=== PATIENT | female | born 1960 ===

== ENCOUNTER 2016-08-25 06:25 | Day surgery (SDC) | payer MEDICAID ==
[2016-07-07 22:18] VITALS: BMI 31.1
[2016-08-25] MEDS ORDERED: Lidocaine 2% Inj (20ml) ONE (07:17)
[2016-08-25] MEDS ORDERED: Bupivacaine HCl 0.5% PF (10 ml) Inj ONE (07:17)
[2016-08-25] MEDS ORDERED: ceFAZolin IV 1 gm in Dextrose 50 ML IVPB ONE (07:17)
[2016-08-25] MEDS ORDERED: Midazolam 2 MG/2 ML VIAL ONE (07:53)
[2016-08-25] MEDS ORDERED: Propofol 10 mg/ml Inj (20 ML) ONE (07:53)
[2016-08-25] MEDS ORDERED: Lactated Ringer's 1,000 ML IV ONE (07:55)
[2016-08-25] MEDS ORDERED: Lidocaine Hydrochloride 5 ML INJ ONE (08:00)
[2016-08-25] MEDS ORDERED: Bacitracin Ointment 30 GM TUBE ONE (09:15)
[2016-08-25] MEDS ORDERED: HYDROmorphone 0.5 mg/0.5 ml ISec IVP PRN (09:28)
--- NOTE | 2016-08-25 09:37 | PCM.SURG1 ---
Surgeon's Initial Post Op Note - Surgeon's Notes Surgeon: Clem HALL Asphalt Distributor Tender: Connie PGY3 Type of Anesthesia: IV Sedation, Local Pre-Operative Diagnosis: Avascular necrosis of second metatarsal, left foot Operative Findings: See dictation Post-Operative Diagnosis: SAME Operation Performed: Second metatarsal implant, left Specimen/Specimens Removed: Bone, 2nd met, left foot Estimated Blood Loss: EBL {In ML}: 5 Blood Products Given: N/A Drains Used: No Drains Post-Op Condition: Good Date of Surgery/Procedure: 08/25/16 Time of Surgery/Procedure: 08:00
--- NOTE | 2016-08-25 09:37 | CP.PCM.PN ---
Subjective - Date & Time of Evaluation Date of Evaluation: 08/25/16 Time of Evaluation: 08:00 Objective - Medications Medications: Current Medications Hydromorphone HCl (Dilaudid) 0.5 mg IVP Q15M PRN PRN Reason: Pain, severe (8-10) Stop: 08/25/16 11:29
[2016-08-25] MEDS ORDERED: Oxycodone/Acetaminophen 5/325 mg Tab PO PRN (09:38)
--- NOTE | 2016-08-25 11:12 | RAD ---
PROCEDURE: Left Foot Radiographs. HISTORY: s/p left foot surgery COMPARISON: None. FINDINGS: BONES: Status post prosthesis in the 2nd metatarsal head. Bone alignment is normal. There is mild periarticular bone demineralization. There is no acute fracture, dislocation or bone destruction JOINTS: The joint spaces are preserved. SOFT TISSUES: There is moderate dorsal forefoot soft tissue swelling OTHER FINDINGS: None. IMPRESSION: Status post processes in the 2nd metatarsal head. Moderate dorsal forefoot soft tissue swelling
[2016-08-25 16:13] VITALS: O2SAT 95
[2016-08-25 16:14] VITALS: BP 138/84; PULSE 81; RESP 19; TEMP 97.9
--- NOTE | 2016-08-27 10:19 | OP ---
PROCEDURE DATE: 08/25/2016 SURGEON: Kar Nj DPM METHODS AND PROCEDURES ANALYST: Marsha Rosales, PGY-3. ANESTHESIA: IV sedation with local anesthesia. PREOPERATIVE DIAGNOSIS: Avascular necrosis, second metatarsal head, left foot. POSTOPERATIVE DIAGNOSIS: Avascular necrosis, second metatarsal head, left foot. PROCEDURE: Second metatarsophalangeal joint implant, left foot. INDICATIONS: The patient is a 56-year-old female with the above-mentioned diagnosis. The patient st ates that she has pain with pressure and range of motion to her second metatarsophalangeal joint on h er left foot. The patient has exhausted all conservative treatment at this time and is now requestin g surgical intervention. The patient signed the consent after careful explanation of all risks, bene fits, complications and alternatives to the surgical procedure. No guarantees were given nor implied . PREPARATION: The patient was brought into the operating room, placed on the operating room table in a supine position. A well-padded pneumatic ankle tourniquet was applied to the patient's left ankle in a supramalleolar position. After induction of IV sedation, the patient received a total of 20 mL of a 1:1 mixture of 0.5% Marcaine plain and 1% lidocaine plain in local block fashion to the patient' s second metatarsal. Once local anesthesia was achieved, the patient's left lower extremity was then prepped and draped in usual sterile manner. At this time, the patient's left lower extremity was ex sanguinated with Esmarch and the pneumatic ankle tourniquet inflated to 250 mmHg and the procedure be sarita. PROCEDURE #1 SECOND METATARSOPHALANGEAL JOINT IMPLANT, LEFT FOOT: Attention was then directed to the dorsal aspect of the patient's second metatarsophalangeal joint. Utilizing a #15 blade, a 3 cm line ar longitudinal incision was created overlying the patient's second metatarsal on the left foot. The incision was deepened through subcutaneous tissue with care being taken to identify and retract all vital neurovascular structures. All bleeders were cauterized and ligated as necessary. At this time , utilizing a #15 blade, a linear longitudinal incision was created in the same latitude as the skin incision through the periosteal and capsular tissues at the second metatarsophalangeal joint. Utiliz ing sharp and blunt dissection, the soft tissues were carefully freed of their osseous attachments an d reflected medially and laterally, exposing the head of the second metatarsal into the operative fie ld. At this time, inspection of the second metatarsal showed that the articular cartilage itself was soft and yellow in color. At this time, the guidewire from the [employer] second metatarsal implant was driven through the center aspect of the metatarsal head. Proper positioning of the guidewire was then verified under fluoroscopy. Next, the reamer was placed over the guidewire and the second meta tarsal head was sufficiently reamed. At this time, the reamer and guidewire were removed and the 12 mm trial size was placed into the second metatarsal head. Proper placement of the hardware as well a s adequate range of motion were verified under fluoroscopy. At this time, the second metatarsal head was broached using the correct broach for the size 12 implant and then, at this time, the implant it self was placed in the second metatarsal head and tamped down until it was well seated. Again, prope r placement of the implant was verified under fluoroscopy and the second metatarsophalangeal joint wa s taken through a range of motion where adequate range of motion was noted. The incision site was th en flushed with copious amounts of normal sterile saline. The deep tissue was reapproximated and coa pted utilizing 3-0 Vicryl. The subcutaneous tissue reapproximated and coapted utilizing 4-0 Vicryl a nd the skin was reapproximated and coapted utilizing 4-0 nylon in simple suture technique. The patie nt received a postoperative injection of 10 mL of 0.5% Marcaine plain in local block fashion to the p atient's second metatarsophalangeal joint. The incision site was dressed in Betadine-soaked Adaptic and DSD. POSTOPERATIVE CONDITION: The patient tolerated the procedure and anesthesia well and was escorted to recovery with all vital signs stable and neurovascular status intact to the patient's left lower ext remity. It is to be noted that the patient will be full weightbearing in a surgical shoe and will fo llow up with Dr. Nj in his office in 1 week. Marsha Rosales DPM Kar Nj DPM cc: [id number] TT: 08/27/2016 10:18:39 [facility] # [id number] tn
== END 2016-08-25 11:19 | disposition home or self-care (01) ==
LOC: C.SDS 06:25
PROVIDERS: ATTEND Podiatrist Foot & Ankle Surgery
DX: M87.875 Other osteonecrosis, left foot (principal); E11.9 Type 2 diabetes mellitus without complications
CPT/HCPCS: 28899; 73620; 82948; 88304; 88311; J0690; J1885; J2250; J2704; J3010; J7120

== ENCOUNTER 2018-03-15 17:57 | Emergency (ER) | payer MEDICAID ==
[2018-03-15 17:57] VITALS: BMI 31.1
[2018-03-15 18:15] VITALS: BP 154/98; PULSE 91; TEMP 99; O2SAT 99
--- NOTE | 2018-03-15 18:39 | C.PDOC ---
History Of Present Illness 57 y/o female presents to ED with c/o mouth pain for 2 weeks. Patient states she has similar symptoms intermittently for 5+ years and states she was previously diagnosed with herpes and given unknown "antibiotics" and mouthwash by PMD today with no improvement. Reports checking her sugar regularly. Denies increased thirst, increased urination, difficulty breathing or swallowing, lip or tongue swelling, chest pain or any other complaints at this time. She states she has the same episodes every few months. Time Seen by Provider: 03/15/18 18:23 Chief Complaint (Nursing): Dental Pain History Per: Patient History/Exam Limitations: no limitations Onset/Duration Of Symptoms: Days Current Symptoms Are (Timing): Still Present Past Medical History Reviewed: Historical Data, Nursing Documentation, Vital Signs Vital Signs: Last Vital Signs Temp 99 F 03/15/18 18:11 Pulse 91 H 03/15/18 18:11 Resp 18 03/15/18 18:11 BP 154/98 H 03/15/18 18:11 Pulse Ox 99 03/15/18 18:11 - Medical History PMH: Anemia, Anxiety, Bipolar Disorder, Depression, Diabetes, Graves' Disease, HTN, Hypercholesterolemia Surgical History: Family History: States: No Known Family Hx - Social History Hx Tobacco Use: Yes Hx Alcohol Use: No Hx Substance Use: No - Immunization History Hx Tetanus Toxoid Vaccination: Yes Hx Influenza Vaccination: Yes Hx Pneumococcal Vaccination: Yes Review Of Systems Constitutional: Negative for: Fever, Chills ENT: Positive for: Mouth Pain. Negative for: Mouth Swelling, Throat Pain Respiratory: Negative for: Cough Gastrointestinal: Negative for: Nausea, Vomiting Skin: Negative for: Rash Physical Exam - Physical Exam Appears: Non-toxic, No Acute Distress Skin: Warm, Dry, No Rash Head: Atraumatic, Normacephalic Eye(s): bilateral: Normal Inspection, EOMI Ear(s): Bilateral: Normal Nose: Normal, No Discharge Oral Mucosa: Moist, Other (multiple ulceration to inner mucosa) Tongue: No Swelling, Other ((+) ulcerations) Lips: No Swelling Throat: Normal, No Erythema, No Exudate Neck: Normal ROM, Supple Chest: Symmetrical Cardiovascular: Rhythm Regular Respiratory: Normal Breath Sounds, No Rales, No Rhonchi, No Wheezing Gastrointestinal/Abdominal: Soft, No Tenderness, No Guarding, No Rebound Neurological/Psych: Oriented x3, Normal Speech, Normal Cognition ED Course And Treatment O2 Sat by Pulse Oximetry: 99 (RA) Pulse Ox Interpretation: Normal Progress Note: PT is tolerating PO. Afebrile. Given lidocaine with improvement. Previous records evaluated with similar visits. Patient was instructed to follow up with physician/cl inic in 1-2 days for further evaluation. Disposition - Disposition Disposition: HOME/ ROUTINE Disposition Time: 18:37 Condition: GOOD Additional Instructions: Vaya a [facility] o la clnica en 2-5 hagan sin falta, para mas evaluacin. [place] los medicamentos renea indicado. Volver a la john de emergencia en cualquier momento si los sntomas persisten o empeoran. Prescriptions: Mag&Al/Simet/Diphen/Lido [First Magic Mouthwash] 5 ml MM Q6 #1 kit Instructions: Cold Sores (Oral Herpes) (DC) Forms: [employer] (Bhutanese) Print Language: TURKISH - Clinical Impression Clinical Impression: Gingivostomatitis - PA / FRUIT DRYER / Resident Statement MD/DO has reviewed & agrees with the documentation as recorded. - Scribe Statement The provider has reviewed the documentation as recorded by the Scribe Chip Solares All medical record entries made by the Scribe were at my direction and personally dictated by me. I have reviewed the chart and agree that the record accurately reflects my personal performance of the history, physical exam, med [facility] decision making, and the department course for this patient. I have also personally directed, reviewed, and agree with the discharge instructions and disposition.
[2018-03-15 19:11] VITALS: RESP 20
== END 2018-03-15 19:10 | disposition home or self-care (01) ==
LOC: C.ER 17:57
DX: K05.10 Chronic gingivitis, plaque induced (principal)

== ENCOUNTER 2018-04-25 13:47 | Emergency (ER) | payer MEDICAID ==
[2018-04-25 13:47] VITALS: BMI 31.1
[2018-04-25 13:54] VITALS: TEMP 98.6
--- NOTE | 2018-04-25 14:42 | C.PDOC ---
History Of Present Illness 57 y/o female presents to the ED for evaluation of elevated blood pressure. Patient checked her pressure at home this afternoon and found it to be 200/105, prompting her to come in. She reports compliance with taking her metoprolol, 200 mg daily. Otherwise she denies any chest pain, SOB, BANGURA, headache, dizziness, blurry/double vision, nausea, or vomiting. Additionally she complains of left mid back pain, which worsens when lying/sitting down, and has been ongoing for months. She denies any extremity weakness, numbness, or tingling. Time Seen by Provider: 04/25/18 14:42 Chief Complaint (Nursing): High Blood Pressure History Per: Family ( at bedside, translating in Armenian for patient) History/Exam Limitations: no limitations Onset/Duration Of Symptoms: Hrs Current Symptoms Are (Timing): Still Present Quality Of Symptoms: Asymptomatic Past Medical History Reviewed: Historical Data, Nursing Documentation, Vital Signs Vital Signs: Last Vital Signs Temp 98.6 F 04/25/18 13:53 Pulse 61 04/25/18 13:53 Resp 20 04/25/18 13:53 BP 175/102 H 04/25/18 13:53 Pulse Ox 97 04/25/18 13:53 - Medical History PMH: Anemia, Anxiety, Bipolar Disorder, Depression, Diabetes, Graves' Disease, HTN, Hypercholesterolemia Denies: Chronic Kidney Disease Surgical History: Family History: States: Unknown Family Hx - Social History Hx Tobacco Use: Yes Hx Alcohol Use: No Hx Substance Use: No - Immunization History Hx Tetanus Toxoid Vaccination: Yes Hx Influenza Vaccination: Yes Hx Pneumococcal Vaccination: Yes Review Of Systems Constitutional: Positive for: Other (Elevated blood pressure). Negative for: Fever, Weakness, Malaise Eyes: Negative for: Pain, Vision Change ENT: Negative for: Ear Pain Cardiovascular: Negative for: Chest Pain, Palpitations, Light Headedness Respiratory: Negative for: Cough, Shortness of Breath, SOB with Excertion Gastrointestinal: Negative for: Nausea, Vomiting Genitourinary: Negative for: Dysuria, Hematuria Musculoskeletal: Positive for: Back Pain. Negative for: Neck Pain, Shoulder Pain, Arm Pain, Hand Pain, Leg Pain Skin: Negative for: Rash Neurological: Negative for: Weakness, Numbness, Headache, Dizziness Psych: Negative for: Anxiety, Depression Physical Exam - Physical Exam Appears: Non-toxic, No Acute Distress Skin: Warm, Dry Head: Normacephalic Eye(s): bilateral: Normal Inspection, PERRL, EOMI Oral Mucosa: Moist Neck: Trachea Midline, Supple, Other (No meningeal signs- negative kernig's and brudzinskis) Chest: Symmetrical, No Tenderness Cardiovascular: Rhythm Regular, Other (No rub) Respiratory: No Rales, No Rhonchi, No Wheezing Gastrointestinal/Abdominal: Soft, No Tenderness, No Distention Back: No Vertebral Tenderness, Other (Left scapular tenderness, reproducible pain on palpation) Extremity: Bilateral: Normal Color And Temperature Pulses: Left Dorsalis Pedis: Normal, Right Dorsalis Pedis: Normal Neurological/Psych: Oriented x3, Normal Speech, Normal Cognition Gait: Steady ED Course And Treatment - Laboratory Results Result Diagrams: 04/25/18 16:34 04/25/18 17:25 O2 Sat by Pulse Oximetry: 97 (RA) Pulse Ox Interpretation: Normal Medical Decision Making Medical Decision Making: Impression: 57 y/o F with PMHx of HTN, presenting for evaluation of blood pressure 200/105 at home today, also complaining of left-sided back pain for the past two months. Back pain is not center of back / mid scapula. Back pain is L scapula, worse when moving L arm and cramp like, worse when laying on it- likely MSK. NO CP or SOB. Initial Plan: --EKG --Chest x-ray --CMP --Troponin I --CBC 1528 pt refusing labs. 1800 pt agreed to labs, unremarkable Xray unremarkable clear for d/c home with return indications and follow up pt agreeable with plan pressure improved. No BRODY. Normal neuro exam. no CP Disposition - Disposition Referrals: [facility] [Outside] [facility] [Outside] Jacob Gilliam MD [Medical Doctor] - Disposition: HOME/ ROUTINE Disposition Time: 18:07 Condition: GOOD Additional Instructions: ANDREW CLIFFORD, thank you for letting us take care of you today. Your provider was Elpidio Anderson and you were treated for HB PRESSURE. The emergency medical care you received today was directed at your acute symptoms. If you were prescribed any medication, please fill it and take as directed. It may take several days for your symptoms to resolve. Return to the Emergency Department if your symptoms worsen, do not improve, or if you have any other problems. Please contact your doctor or call one of the physicians/clinics you have been r eferred to that are listed on the Patient Visit Information form that is included in your discharge packet. Bring any paperwork you were given at discharge with you along with any medications you are taking to your follow up visit. Our treatment cannot replace ongoing medical care by a primary care provider outside of the emergency department. Thank you for allowing the [employer] team to be part of your care today. If you had an X-Ray or CT scan: A Radiologist will review the ED reading if any change in treatment is needed we will contact you. If you had a blood, urine, or wound culture: It will take several days for the results, if any change in treatment is needed we will contact you. If you had an STI test: It will take 48 hours for the results. Please call after 1 week if you have not heard back. Instructions: High Blood Pressure in Adults Forms: [employer] (Albanian) - Clinical Impression Clinical Impression: Hypertension, Muscular pain - Scribe Statement The provider has reviewed the documentation as recorded by the Scribe (Edilma Velasquez) Provider Attestation: All medical record entries made by the Scribe were at my direction and personally dictated by me. I have reviewed the chart and agree that the record accurately reflects my personal performance of the history, physical exam, medical decision making, and the department course for this patient. I have also personally directed, reviewed, and agree with the discharge instructions and disposition.
--- NOTE | 2018-04-25 15:46 | RAD ---
HISTORY: L scapula pain x monthrs COMPARISON: None available. TECHNIQUE: Chest PA and lateral FINDINGS: Examination limited by habitus. LUNGS: No focal consolidation. Please note that chest x-ray has limited sensitivity for the detection of pulmonary masses. PLEURA: No significant pleural effusion identified. No definite pneumothorax . CARDIOVASCULAR: Heart size appears within normal limits. Ectatic aorta. OSSEOUS STRUCTURES: No acute osseous abnormality identified. VISUALIZED UPPER ABDOMEN: Unremarkable. OTHER FINDINGS: None. IMPRESSION: No focal consolidation.
[2018-04-25 16:38] LABS: BASO # 0.1 K/uL (0.0-0.2); BASO % 0.7 % (0.0-2.0); EOS # 0.2 K/uL (0.0-0.7); HEMOGLOBIN 11.4 g/dL (11.0-16.0); LYMPH # 4.3 K/uL (1.0-4.3); LYMPH % 36.2 % (20.0-40.0); MEAN CELL VOLUME 83.5 fL (81.0-99.0); MEAN CORPUSCULAR HEMOGLOBIN 27.3 pg (27.0-31.0); MEAN CORPUSCULAR HGB CONC 32.7 g/dL (33.0-37.0); MEAN PLATELET VOLUME 8.3 fL (7.2-11.7); MONO % 8.4 % (0.0-10.0); NEUT # 6.2 K/uL (1.8-7.0); NEUT % 52.7 % (50.0-75.0); RBC 4.17 Mil/uL (3.80-5.20); WHITE BLOOD COUNT 11.8 K/uL (4.8-10.8)
[2018-04-25 17:53] LABS: ALBUMIN 4.3 g/dL (3.5-5.0)
[2018-04-25 18:05] LABS: ALT/SGPT 20 U/L (9-52); AST/SGOT 22 U/L (14-36); BLOOD UREA NITROGEN 11 mg/dL (7-17); CALCIUM 9.4 mg/dl (8.6-10.4); GFR NON-AFRICAN AMERICAN > 60
[2018-04-25 18:14] LABS: ALB/GLOB RATIO 1.3 (1.0-2.1)
[2018-04-25 18:41] VITALS: BP 169/102; PULSE 60; RESP 18; O2SAT 100
--- NOTE | 2018-04-26 23:48 | CARD ---
APPROVED REPORT Date of service: 04/25/2018 EKG Measurement Heart [id number] <Conclusion> Normal sinus rhythm Normal ECG
== END 2018-04-25 18:42 | disposition home or self-care (01) ==
LOC: C.ER 13:47
DX: I10 Essential (primary) hypertension (principal); M79.10 Myalgia, unspecified site; Z87.891 Personal history of nicotine dependence